=== PATIENT | female | born 1990 | race Caucasian/White ===

== ENCOUNTER 2020-04-24 14:12 | Emergency (ER) | payer BC ==
[2020-04-24] MEDS ORDERED: HYDROcodone/Acetaminophen 7.5/325 mg Tablet ONE (14:41)
[2020-04-24] MEDS ORDERED: Cephalexin 250 MG CAP ONE (14:41)
== END 2020-04-24 14:50 | disposition home or self-care (01) ==
LOC: NAV ERS 14:12
DX: K04.7 Periapical abscess without sinus (principal); F17.290 Nicotine dependence, other tobacco product, uncomplicated
CPT/HCPCS: 99282